=== PATIENT | female | born 1955 | race Caucasian/White ===

== ENCOUNTER 2022-09-19 15:11 | Observation (INO) | payer OTHER ==
--- OUTSIDE RECORDS SUMMARY | 2022-09-19 15:13 | XMS REPORT | Continuity of Care Document ---
:1955 Author Organization [facility] t Address [address] Santos [address] [place] [id number] Care Team Providers Name Role Phone Pcp, Patient Does Not Have A Primary Care Physician [id number] Doctor Unassigned, [place] Attending Clinician Unavailable RADHA IBRAHIM Attending Clinician Unavailable Radha Ibrahim MD Attending Clinician Dominique Payne RN Attending Clinician Unavailable Bradley LICENSED ELECTRICIANElin Attending Clinician Darrel Jacobs Attending Clinician DARREL ROLAND Attending Clinician Unavailable WATERS_S Attending Clinician Unavailable Meka Bradley RN Attending Clinician Unavailable Chaitanya Dugan MD Attending Clinician Provider, [facility] Attending Clinician Unavailable Toya Gonzalez Attending Clinician TOYA GUNTER Attending Clinician Unavailable WATERS_S Admitting Clinician Unavailable Payers Payer Name Policy Type Policy Number Effective Date Expiration Date S catherine MEDICARE A-[place]: [id number] 2020 [place] 00:00:00 [facility] () [id number] 2007 00:00:00 Problems Condition Condition Condition Status Onset Resolution Last Treating Co mments Source Name Details Category Date Date Treatment Clinician Date No known No known Disease Unive rs active active ity of problems problems [facility] [place] Allergies, Adverse Reactions, Alerts Allergy Allergy Status Severity Reaction(s) Onset Inactive Treating Comm ents Source Name Type Date Date Clinician NO KNOWN Drug Active Univers ALLERGIE Class ity of S [facility] [place] Social History Social Habit Start Date Stop Date Quantity Comments Source History SDOH University o f Alcohol Std [facility] Dr[facility] Branch History SDOH University o f Alcohol Binge [facility] History SDOH University o f Alcohol Comment [facility] Exposure to 2022-05-16 2022-05-26 Not sure University of SARS-CoV-2 00:00:00 08:57:00 [facility] (event) Branch Tobacco use and 2022-05-26 2022-05-26 Smokeless tobacco Un iversity of exposure 00:00:00 00:00:00 non-user [facility] Alcohol intake 2022-05-26 2022-05-26 Lifetime University of 00:00:00 00:00:00 non-drinker [facility] (finding) Branch History SDOH 2020-11-02 2020-11-02 1 University o f Alcohol Frequency 00:00:00 00:00:00 [facility] edical [place] Sex Assigned At [birth year] Universit y of 00:00:00 00:00:00 [facility] Smoking Status Start Date Stop Date Source Never smoked tobacco [facility] Medications Ordered Filled Start Stop Current Ordering Indication Dosage Frequency Signature Comments Components Source Medication Medication Date Date Medication? Clinician (SIG) Name Name atorradhatagenesis Yes 20mg Take 20 mg Univers n 20 mg 9-29 by mouth ity of tablet 09:54: at [place] [address] bedtime. Medical Branch atorvastati Yes 20mg Take 20 mg Univers n 20 mg 9-29 by mouth ity of tablet 09:54: at [place] [address] bedtime. Medical Branch atorvastati Yes 20mg Take 20 mg Univers n 20 mg 9-29 by mouth ity of tablet 09:54: at [place] [address] bedtime. Medical Branch atorvastati Yes 20mg Take 20 mg Univers n 20 mg 9-29 by mouth ity of tablet 09:54: at [place] [address] bedtime. Medical Branch atorvastati 2021-0 Yes 20mg Take 20 mg Univers n 20 mg 9-29 by mouth ity of tablet 09:54: at [place] 24 bedtime. Medical Branch atorvastati 1-0 Yes 20mg Take 20 mg Univers n 20 mg 9-29 by mouth ity of tablet 09:54: at [place] 24 bedtime. Medical Branch Vital Signs Vital Name Observation Time Observation Value Comments Source Body height 2022-05-26 20:16:00 152.4 cm [facility] Body weight 2022-05-26 20:16:00 54.432 kg [facility] BMI 2022-05-26 20:16:00 23.44 kg/m2 [facility] Systolic blood 2021 20:27:00 137 mm[facility]Hg[facility] 2021 20:27:00 71 mm[Hg[facility] Heart rate 2021 20:27:00 74 /min [facility] Body height 2021 20:27:00 152.4 cm [facility] Body weight 2021 20:27:00 58.877 kg [facility] BMI 2021 20:27:00 25.35 kg/m2 [facility] Oxygen saturation 2021 20:27:00 100 /min [facility] in Arterial blood Medical Br anch by Pulse oximetry Procedures Procedure Date / Time Performed Performing Clinician Sour e EXTERNAL PROVIDER 2022-06-12 05:01:00 Doctor Unassigned, No Univ [facility] RECORDS Name [facility] Encounters Start End Encounter Admission Attending Care Care Encounter Source Date/Time Date/Time Type Type Clinicians Facility Department ID 2022-06-12 2022-06-12 Orders Doctor SILVANA [id number] Univers 00:00:00 00:00:00 Only UnassignedKURTIS [id number] ity of [place] [facility] 4.2.7.2.686 Ruben as [id number] [place] [address] Branch 2022-05-26 2022-05-26 Outpatient R ALEXANDRIA [facility] [id number] Univers 15:15:00 16:01:10 RADHA penning[place] of [facility] 2022-05-26 2022-05-26 Office [facility] [id number] [facility] 15:15:00 16:01:10 Visit Radha ZENG [id number] it y of [place] [id number] Ruben as BRANDT?BLEA [id number] Me arthur PELAEZ [address] [place] [address] OFFICE [facility] 2022-05-26 2022-05-26 Telephone [facility] [id number] Univers 00:00:00 00:00:00 Radha ZENG [id number] it y of [place] [id number] Ruben as BRANDT?BLEA [id number] Ri arthur PELAEZ [address] [place] [address] OFFICE [facility] 2021 2021 Office [facility] [id number] [facility] 14:15:00 14:55:53 Visit Radha ZENG [id number] it y of [place] 4.2.7.2.686 Ruben as BRANDT?BLEA [id number] Ri arthur PELAEZ [address] [place] [address] 2021 2021 [facility] [id number] [facility] 14:15:00 14:55:53 RADHA pennington [facility] 2021-08-29 2021-08-29 Telephone [facility] [id number] Univers 00:00:00 00:00:00 Radha ZENG 350.1.13.10 it y of [place] 4.2.7.2.686 Ruben as BRANDT?BLEA [id number] Ri arthur PELAEZ [address] [place] [address] OFFICE [facility] 2021-08-19 2021-08-19 Telephone [facility] 1.2.840.114 [id number] Univers 00:00:00 00:00:00 Radha ZENG 350.1.13.10 it y of [place] 4.2.7.2.686 Ruben as BRANDT?BLEA [id number] Ri arthur PELAEZ [address] [place] [address] OFFICE [facility] 2021-08-19 2021-08-19 Telephone [facility] [id number] Univers 00:00:00 00:00:00 Radha L HEALTH 350.1.13.10 it y of [place] 4.2.7.2.686 Ruben as BRANDT?BLEA [id number] Ri arthur PELAEZ [address] [place] [address] OFFICE [facility] 2021-07-19 2021-07-19 Telephone [facility] 1.2.840.114 [id number] Univers 00:00:00 00:00:00 Radha L HEALTH 350.1.13.10 it y of [place] 4.2.7.2.686 Ruben as BRANDT?BLEA [id number] Ri arthur PELAEZ [address] [place] [address] 2021-07-18 2021-07-18 Orders Doctor PINA [id number] Univers 00:00:00 00:00:00 Only Unassigned, KURTIS 350.1.13.10 ity of [place] [facility] 4.2.7.2.686 Ruben as [phone] [facility] 009 [place] 2021-07-11 2021-07-11 Telephone [facility] [id number] Univers 00:00:00 00:00:00 Radha L HEALTH 350.1.13.10 it y of [place] 4.2.7.2.686 Ruben as BRANDT?BLEA [id number] Ri arthur PELAEZ [address] [place] [address] 2021-05-09 2021-05-09 Letter SILVANA Payne [id number] Univers 00:00:00 00:00:00 (Out) Dominique Octavio KURTIS 350.1.13.10 it y of HOSPITAL 4.2.7.2.686 Ruben as [id number] [facility] 019 [place] 2021-05-08 2021-05-08 Urgent Elin Huerta [facility] 1.2.840 .114 [id number] Univers 09:45:00 10:04:46 Care Darrel [facility] 350.1.13.10 ity of [place] 4.2.7.2.686 Ruben as Brandt?Blea [phone] Me dical michelle [address] [place] [address] Medical Office Building 2021-05-08 2021-05-08 Outpatient R DARLENEShania [facility] [id number] Univers 10:00:00 10:00:00 DARREL pennington [facility] 2021-05-08 2021-05-08 Outpatient WATERS_S [facility] 2020 Ramona 09:51:00 09:51:00 [id number] [facility] 2020-11-02 2020-11-02 Hospital [facility] 1.2.840.114 [id number] Univers 08:30:59 23:59:00 Encounter Radha Paredes [facility] 350.1.13.10 ity of Surgical 4.2.7.2.686 Ruben as Specialti [id number] Ri dical es 809 [facility] 2020-11-02 2020-11-02 [facility] [id number] Univers 09:45:00 09:45:00 RADHA pennington [facility] 2020-11-02 2020-11-02 Office [facility] [id number] Univers 08:19:20 08:52:19 Visit Radha Paredes [facility] 350.1.13.10 it y of Surgical 4.2.7.2.686 Ruben as Specialti [phone] Ri dical es 198 [facility] 2020-11-02 2020-11-02 Telephone [facility] 1.2.840.114 [id number] Univers 00:00:00 00:00:00 Radha Paredes [facility] 350.1.13.10 it y of Surgical 4.2.7.2.686 Ruben as Specialti [id number] Ri dical es 198 [facility] 2020-06-03 2020-06-03 Letter SILVANA Bradley 1.2.840.114 [id number] Univers 00:00:00 00:00:00 (Out) Meka KURTIS 350.1.13.10 it y of HOSPITAL 4.2.7.2.686 Ruben as [id number] [address] 2020-06-03 2020-06-03 Telephone SILVANA Dugan [id number] Univers 00:00:00 00:00:00 Chaitanya HULL 350.1.13.10 i ty of [facility] 4.2.7.2.686 Ruben as [id number] [address] 2020-05-31 2020-05-31 Urgent Provider, [facility] [id number] Univers 11:20:49 11:40:49 Care Toya Gunter [facility].1.13.[address] [facility] [id number] Ruben as Professio [id number] [place] [address] Branch Office Building One 2020-05-31 2020-05-31 Outpatient R JANI [facility] [id number] Univers 11:20:00 11:20:00 TOYA pennington [facility] Results This patient has no known results.
--- NOTE | 2022-09-19 15:51 | RAD REPORT ---
EXAM DESCRIPTION: RAD - Chest Single View - 09/19/2022 3:40 pm CLINICAL HISTORY: CHEST PAIN COMPARISON: No comparisons FINDINGS: Lines: None. Lungs: No evidence of edema or pneumonia. Pleural: No significant pleural effusions or pneumothorax. Cardiac: The heart size is within normal limits. Mediastinum: Within normal limits. Bones: No acute fractures. Other: None IMPRESSION: No acute cardiopulmonary disease.
[2022-09-19 16:09] LABS: Protime INR 0.93
[2022-09-19 16:10] LABS: Absolute Lymphocytes (CBC) 1.4 K/uL (0.7-4.9); Hematocrit 37.9 % (36.0-45.0); Lymphocytes % 30.5 % (15.3-44.8); MCV 91.5 fL (80-100); MPV 9.1 fL (7.6-11.3); RBC Red Blood Cell Count 4.14 M/uL (3.86-4.86)
[2022-09-19 16:25] LABS: Albumin 4.2 g/dL (3.4-5.0); Bilirubin Direct 0.1 mg/dL (0-0.2); Bilirubin Total 0.5 mg/dL (0.2-1.0); Magnesium 2.2 mg/dL (1.6-2.4); Potassium 3.9 mmol/L (3.5-5.1); Protein, Total 7.7 g/dL (6.4-8.2); Troponin High Sensitivity 4.5 pg/mL (<58.9)
--- NOTE | 2022-09-19 17:26 | RAD REPORT ---
EXAM DESCRIPTION: CTAngio Aorta For Dissection - 09/19/2022 5:13 pm CLINICAL HISTORY: chest pain COMPARISON: No comparisons TECHNIQUE: CTA of the chest, abdomen, and pelvis was performed. MIPs of the aorta were created. All CT scans are performed using dose optimization technique as appropriate and may include automated exposure control or mA/KV adjustment according to patient size. FINDINGS: Thorax: Chest Wall: No abnormal mass Lungs: No acute abnormality. Pleura: No effusions or pneumothorax. Angelia/Mediastinum: No lymphadenopathy. Aorta/Pulmonary Arteries: Unremarkable Heart: Normal size. Abdomen/Pelvis: Liver: No acute abnormality or suspicious lesions. Biliary: No biliary ductal dilatation. Stomach: No significant focal abnormality. Duodenum: No significant focal abnormality. Pancreas: 2 cystic lesions are present in the pancreatic head, the larger measuring 6 millimeters. No pancreatic ductal dilatation. Spleen: No significant abnormality. Adrenal: No suspicious lesions. Kidney/ureter: No hydronephrosis. No renal calculi. Too small to characterize and/or benign appearing renal lesions are noted. Retroperitoneum: No retroperitoneal adenopathy. Vascular: No aneurysm. Bowel: No significant focal abnormality. Peritoneum: No ascites or free air. Bladder: Grossly unremarkable. Reproductive: No adnexal masses. Suspect uterine fibroids. Bones: No acute fracture. Other: n/a IMPRESSION: 1. No aortic aneurysm, aortic dissection, or pulmonary embolus. 2. 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 While lesions of low malignant potential, they are typically observed with serial imaging including a 12 month follow-up MRCP .
--- NOTE | 2022-09-19 18:44 | ER ---
Nurse's Notes [facility] Name: Rafael Bacon Age: 67 yrs Sex: Female : 1955 Arrival Date: 09/19/2022 Time: 15:12 Bed 15 Private MD: Diagnosis: Chest pain, unspecified Presentation: 09/19 15:26 Chief complaint: Patient states: pain to chest/epigastric area radiating to back that aa5 started when she was out walking today and it lasted approximately 15 minutes and pain resolved "when I sat down". Pt also reports nausea. Coronavirus screen: At this time, the client does not indicate any symptoms associated with coronavirus-19. Ebola Screen: Patient denies travel to an Ebola-affected area in the 21 days before illness onset. Initial Sepsis Screen: Does the patient meet any 2 criteria? No. Patient's initial sepsis screen is negative. Does the patient have a suspected source of infection? No. Patient's initial sepsis screen is negative. Risk Assessment: Do you want to hurt yourself or someone else? Patient reports no desire to harm self or others. Onset of symptoms was September 2022. 15:26 Method Of Arrival: Ambulatory aa5 15:26 Acuity: DEANA 2 aa5 Triage Assessment: 15:56 General: Appears in no apparent distress. comfortable, Behavior is calm, cooperative, kr3 appropriate for age. Pain: Complains of pain in chest Pain radiates to back. Historical: - Allergies: 15:27 No Known Allergies; aa5 - PMHx: 15:27 High Cholesterol; Hypertension; aa5 - PSHx: 15:27 endometriosis; aa5 - Immunization history:: Adult Immunizations unknown. - Social history:: Smoking status: Patient denies any tobacco usage or history of. Screenin:[facility] ED Fall Risk Assessment (Adult) History of falling in the last 3 months, kr3 including since admission No falls in past 3 months (0 pts) Confusion or Disorientation No (0 pts) Intoxicated or Sedated No (0 pts) Impaired Gait No (0 pts) Mobility Assist Device Used No (0 pt) Altered Elimination No (0 pt) Score/Fall Risk Level 0 - 2 = Low Risk Oriented to surroundings, Maintained a safe environment, Assessed \\T\\ reinforced patient's understanding of fall precautions, Hourly rounding (assess needs \\T\\ fall precautionary measures) done. Abuse screen: Denies threats or abuse. Nutritional screening: No deficits noted. Tuberculosis screening: No symptoms or risk factors identified. Assessment: 20:33 Pain: Denies pain. Cardiovascular: Denies chest pain. ke1 Vital Signs: 15:26 BP 146 / 79; Pulse 86; Resp 16 S; Temp 97.5(TE); Pulse Ox 100% on R/A; Weight 52.62 kg aa5 (R); Height 5 ft. 0 in. (152.40 cm) (R); 20:33 BP 148 / 64; Pulse 75; Resp 19; Temp 97.6; Pulse Ox 100% on R/A; Pain 0/10; ke1 15:26 Body Mass Index 22.65 (52.62 kg, 152.40 cm) aa5 ED Course: 15:12 Patient arrived in ED. mr 15:13 Michael Lind PA is PHCP. cp 15:13 Wilmar Sierra MD is Attending Physician. cp 15:27 Triage completed. aa5 15:27 Arm band placed on. aa5 15:29 EKG completed in triage. Results shown to MD. aa5 15:31 Katarzyna Armstrong, DEMAR is Primary Nurse. kr3 15:32 EKG done, by ED staff, reviewed by Wilmar Sierra MD. mm9 15:33 Patient has correct armband on for positive identification. Placed in gown. Bed in low mm9 position. Call light in reach. Side rails up X 1. Adult w/ patient. Warm blanket given. Client placed on continuous cardiac and pulse oximetry monitoring. NIBP monitoring applied. nurse monitoring on. Pulse ox on. NIBP on. 15:42 XRAY Chest (1 view) In Process Unspecified. EDMS 15:55 Inserted saline lock: 22 gauge in right antecubital area, using aseptic technique. kr3 Blood collected. 17:14 CT Aorta for Dissection In Process Unspecified. EDMS 18:43 Nikki Reid PA-C is Hospitalizing Provider. cp 19:15 SARS RAPID Sent. rv1 20:34 No provider procedures requiring assistance completed. Patient maintains SpO2 ke1 saturation greater than 95% on room air. 20:40 Patient admitted, IV remains in place. ke1 Administered Medications: 19:00 Drug: Aspirin Chewable Tablet 324 mg Route: PO; kr3 20:40 Follow up: Response: No adverse reaction ke1 Medication: 20:34 VIS not applicable for this client. ke1 Outcome: 18:43 Decision to Hospitalize by Provider. cp 20:39 Admitted to Med/surg accompanied by tech. ke1 20:39 Condition: good 20:39 Instructed on the need for admit. 21:16 Patient left the ED. ke1 Signatures: Dispatcher [employer] OSMAR MasterLeni mr MorenoPerlita, RN RN aa5 Michael Lind PA PA David Gil RN RN ke1 Katarzyna Armstrong RN RN regina3 Dasia Jimenez [facility] Laly Fairbanks 1 Corrections: (The following items were deleted from the chart) 15:29 15:26 Acuity: DEANA 3 aa5 aa5
--- NOTE | 2022-09-19 18:44 | EDPHYS ---
Physician Documentation [facility] Name: Rafael Bacon Age: 67 yrs Sex: Female : 1955 Arrival Date: 09/19/2022 Time: 15:12 Bed 15 Private MD: ED Physician Wilmar Sierra HPI: 09/19 15:25 This 67 yrs old Female presents to ER via Ambulatory with complaints of Chest Pain, cp Back Pain. 15:25 The patient or guardian reports chest pain that is located primarily in the anterior cp chest wall, pain started while walking to exercise. Onset: today, about 1330. The pain radiates to back. 15:25 The chest pain is described as aching. Duration: The patient or guardian reports a cp single episode, that is still ongoing, but improving. Modifying factors: The symptoms are alleviated by rest. Historical: - Allergies: 15:27 No Known Allergies; aa5 - PMHx: 15:27 High Cholesterol; Hypertension; aa5 - PSHx: 15:27 endometriosis; aa5 - Immunization history:: Adult Immunizations unknown. - Social history:: Smoking status: Patient denies any tobacco usage or history of. ROS: 15:30 Constitutional: Negative for body aches, chills, fever, poor PO intake. cp 15:30 Cardiovascular: Positive for chest pain. cp 15:30 Eyes: Negative for injury, pain, redness, and discharge. cp 15:30 Neck: Negative for pain with movement, pain at rest, stiffness. 15:30 Respiratory: Negative for cough, shortness of breath, wheezing. 15:30 Abdomen/GI: Negative for abdominal pain, vomiting, diarrhea, constipation. 15:30 Back: Positive for radiated pain. 15:30 Neuro: Negative for altered mental status, dizziness, headache, numbness, syncope, weakness. 15:30 All other systems are negative. Exam: 15:35 ECG was reviewed by the Attending Physician. cp 15:40 Constitutional: The patient appears in no acute distress, alert, awake, cp non-diaphoretic, non-toxic, well developed, well nourished. 15:40 Head/Face: Normocephalic, atraumatic. cp 15:40 Eyes: Periorbital structures: appear normal, Conjunctiva: normal, no exudate, no injection, Sclera: no appreciated abnormality, Lids and lashes: appear normal, bilaterally. 15:40 ENT: External ear(s): are unremarkable, Nose: is normal, Mouth: Lips: moist, Oral mucosa: pink and intact, moist, Posterior pharynx: is normal, airway is patent, no erythema, no exudate. 15:40 Neck: ROM/movement: is normal, is supple, without pain, no range of motions limitations. 15:40 Chest/axilla: Inspection: normal. 15:40 Cardiovascular: Rate: normal, Rhythm: regular, Heart sounds: murmur, not appreciated, Edema: is not appreciated, JVD: is not appreciated. 15:40 Respiratory: the patient does not display signs of respiratory distress, Respirations: normal, no use of accessory muscles, no retractions, labored breathing, is not present, Breath sounds: are clear throughout, no decreased breath sounds, no stridor, no wheezing. 15:40 Abdomen/GI: Exam negative for discomfort, distension, guarding, Inspection: abdomen appears normal. 15:40 Back: pain, that is mild, ROM is normal, CVA tenderness, is absent, vertebral tenderness, is not appreciated. 15:40 Neuro: Orientation: to person, place \T\ time. Mentation: is normal, Motor: moves all fours, strength is normal, Sensation: is normal. Vital Signs: 15:26 BP 146 / 79; Pulse 86; Resp 16 S; Temp 97.5(TE); Pulse Ox 100% on R/A; Weight 52.62 kg aa5 (R); Height 5 ft. 0 in. (152.40 cm) (R); 20:33 BP 148 / 64; Pulse 75; Resp 19; Temp 97.6; Pulse Ox 100% on R/A; Pain 0/10; ke1 15:26 Body Mass Index 22.65 (52.62 kg, 152.40 cm) aa5 MDM: 15:23 Patient medically screened. cp 15:30 Differential diagnosis: cholecystitis, Cholelithiasis pancreatitis, pneumonia, cp pneumothorax, pulmonary embolus, stable angina, thoracic aortic disection, unstable angina. 18:45 The patient was given aspirin in the Emergency Department. cp 18:45 Data reviewed: vital signs, nurses notes, lab test result(s), EKG, radiologic studies, cp CT scan, plain films, and as a result, I will admit patient. Consideration of Admission/Observation Patient was admitted/placed on observation. Management of patient was discussed with the following: Hospitalist: Germania Reid NP. Care significantly affected by the following chronic conditions: Hypertension, hyperlipidemia. Counseling: I had a detailed discussion with the patient and/or guardian regarding: the historical points, exam findings, and any diagnostic results supporting the discharge/admit diagnosis, lab results, radiology results. 09/19 15:24 Order name: Basic Metabolic Panel; Complete Time: 16:27 cp 09/19 15:24 Order name: CBC with Diff; Complete Time: 16:27 cp 09/19 15:24 Order name: LFT's; Complete Time: 16:27 cp 09/19 15:24 Order name: Magnesium; Complete Time: 16:27 cp 09/19 15:24 Order name: NT PRO-BNP; Complete Time: 16:27 cp 09/19 15:24 Order name: PT-INR; Complete Time: 16:27 cp 09/19 15:24 Order name: Troponin HS; Complete Time: 16:27 cp 09/19 16:27 Interpretation: Troponin HS 4.5; Reviewed. cp 09/19 15:24 Order name: XRAY Chest (1 view); Complete Time: 15:52 cp 09/19 15:24 Order name: EKG; Complete Time: 15:25 cp 09/19 15:24 Order name: CT Aorta for Dissection; Complete Time: 17:37 cp 09/19 17:40 Order name: Lipase; Complete Time: 18:26 cp 09/19 17:40 Order name: LAB Add On cp 09/19 19:06 Order name: SARS RAPID iw 09/19 15:24 Order name: Cardiac monitoring; Complete Time: 15:32 cp 09/19 15:24 Order name: EKG - Nurse/Tech; Complete Time: 15:29 cp 09/19 15:24 Order name: IV Saline Lock; Complete Time: 15:55 cp 09/19 15:24 Order name: Labs collected and sent; Complete Time: 15:55 cp 09/19 15:24 Order name: O2 Per Protocol; Complete Time: 15:55 cp 09/19 15:24 Order name: O2 Sat Monitoring; Complete Time: 15:55 cp 09/19 19:55 Order name: Diet Regular; Complete Time: 19:56 cp EC:35 Rate is 70 beats/min. Rhythm is regular. MI interval is normal. QRS interval is normal. cp QT interval is normal. T waves are Inverted in lead aVR. Interpreted by me. Reviewed by me. Administered Medications: 19:00 Drug: Aspirin Chewable Tablet 324 mg Route: PO; kr3 20:40 Follow up: Response: No adverse reaction ke1 Disposition Summary: 09/19/22 18:43 Hospitalization Ordered Hospitalization Status: Observation cp Provider: Nikki Reid cp Location: Telemetry/MedSurg (observation) cp Condition: Stable cp Problem: new cp Symptoms: have improved cp Bed/Room Type: Standard Room Assignment: 208(09/19/22 19:59) dw Diagnosis - Chest pain, unspecified cp Forms: - Medication Reconciliation Form cp - SBAR form cp Signatures: Dispatcher [employer] Lianet Cartagena RN RN dw Calderon, Audri RN RN aa5 Michael Lind PA PA cp Katarzyna Armstrong RN RN kr3 David Bray RN ke1 Corrections: (The following items were deleted from the chart) 19:59 18:43 cp dw 09/20 05:39 09/19 15:25 The patient or guardian reports chest pain that is located primarily in the cp anterior chest wall, cp
[2022-09-19] MEDS ORDERED: ASPIRIN 81 MG CHEWABLE TABLET ONE (18:49)
--- NOTE | 2022-09-19 19:22 | P.HP ---
Certification for Inpatient Patient admitted to: Observation With expected LOS: <2 Midnights Patient will require the following post-hospital care: None Practitioner: I am a practitioner with admitting privileges, knowledge of patient current condition, hospital course, and medical plan of care. Services: Services provided to patient in accordance with Admission requirements found in Title 42 Section 412.3 of the Code of Federal Regulations Patient History Date of Service: 09/19/22 Reason for admission: Chest Pain History of Present Illness: Patient is a 67-year-old female with past medical history of hypertension and hyperlipidemia who presented to the emergency department with complaints of chest pain. Patient reports that she was on a walk today, like she does every day, and she started experiencing some substernal chest pain. She states that it radiated to her back and persisted until she got home and sat down and rested. She denies any prior episodes. She is compliant with her medications. States that she actually saw her veneer supervisor Dr. Carr yesterday, and he said everything looked good. She had a negative stress test about 6 months ago. Her labs are unremarkable today, including troponin. CT chest negative for dissection. EKG had some nonspecific changes. She was given 324 mg of aspirin in the ED and has been mildly hypertensive. She has no complaints at this time. ED provider wishes to admit patient for observation, ACS rule out. Home medications list reviewed: Yes - Past Medical/Surgical History Diabetic: No -: Hypertension -: Hyperlipidemia -: Endometriosis Psychosocial/ Personal History: Patient is . - Family History Mother -: Heart disease, Stroke - Social History Smoking Status: Never smoker Alcohol use: No CD- Drugs: No Caffeine use: No Place of Residence: Home Review of Systems Respiratory: Shortness of Breath Cardiovascular: Chest Pain Gastrointestinal: Nausea Physical Examination - Vital Signs Temperature: 97.5 F Blood Pressure: 146/79 Pulse: 86 Respirations: 16 Pulse Ox (%): 100 - Physical Exam General: Alert, In no apparent distress HEENT: Atraumatic, EOMI, Sclerae nonicteric Neck: Supple, 2+ carotid pulse no bruit Respiratory: Clear to auscultation bilaterally, Normal air movement Cardiovascular: Regular rate/rhythm, Normal S1 S2 Gastrointestinal: Normal bowel sounds, No tenderness Musculoskeletal: No tenderness Integumentary: No rashes Neurological: Normal speech, Normal affect - Studies Laboratory Data (last 24 hrs) 09/19/22 15:52: Lipase 172 09/19/22 15:52: PT 10.2, INR 0.93 09/19/22 15:52: WBC 4.40, Hgb 12.5, Hct 37.9, Plt Count 210 09/19/22 15:52: Sodium 138, Potassium 3.9, BUN 15, Creatinine 0.71, Glucose 100, Magnesium 2.2, Total Bilirubin 0.5, AST 18, ALT 26, Alkaline Phosphatase 62 Assessment and Plan - Problems (Diagnosis) (1) Chest pain Current Visit: Yes Status: Acute Qualifiers: Chest pain type: unspecified Qualified Code(s): R07.9 - Chest pain, unspecified (2) Hypertension Current Visit: Yes Status: Chronic Qualifiers: Hypertension type: primary hypertension Qualified Code(s): I10 - Essential (primary) hypertension (3) Hyperlipidemia Current Visit: Yes Status: Chronic Qualifiers: Hyperlipidemia type: unspecified Qualified Code(s): E78.5 - Hyperlipidemia, unspecified - Plan Patient is admitted for observation, ACS rule out. Cardiology consult. Monitor on telemetry. Initial troponin negative. Continue to trend. Echo, lipid panel, and TSH ordered. Aspirin and atorvastatin daily. Monitor and replete electrolytes per protocol. Reconcile and continue home medications. Lovenox for VTE ppx. Full code. Discharge Plan: Home Plan to discharge in: 24 Hours - Advance Directives Does patient have a Living Will: No Does patient have a Durable POA for Healthcare: No - Code Status/Comfort Care Code Status Assessed: Yes Code Status: Full Code Physician Review: Patient Assessed, Agree with Above Assessment and Plan Critical Care: No Time Spent Managing Pts Care (In Minutes): 50
[2022-09-19 19:31] LABS: SARS-CoV-2 Antigen Rapid Res Negative (Negative)
[2022-09-19] MEDS ORDERED: ONDANSETRON 4 MG/2 ML VIAL IV PRN (21:47)
[2022-09-19] MEDS ORDERED: ACETAMINOPHEN 500 MG TAB PO PRN (21:47)
[2022-09-19] MEDS ORDERED: ATORVASTATIN 40 MG TAB PO SCH (21:47)
[2022-09-19 22:16] VITALS: O2SAT 100
[2022-09-20 00:30] VITALS: BMI 22.6
[2022-09-20 05:08] LABS: Thyroid Stimulating Hormone 2.31 uIU/mL (0.358-3.740); Troponin High Sensitivity 5.4 pg/mL (<58.9)
[2022-09-20] MEDS ORDERED: ENOXAPARIN 40 MG/0.4 ML SQ SCH (09:00)
[2022-09-20] MEDS: ASPIRIN EC 81 MG TAB PO SCH ×2 (09:00→10:14)
[2022-09-20] MEDS ORDERED: PNEUMOCOCCAL VACCINE 0.5 ML IMVAC ONE (10:00)
[2022-09-20 11:45] VITALS: BP 146/71; TEMP 98.3
--- NOTE | 2022-09-20 11:46 | P.DS ---
Admission Date: 09/19/22 Discharge Date: 09/20/22 Reason for Admission: Chest Pain - Problems (1) Chest pain Current Visit: Yes Status: Acute Qualifiers: Chest pain type: unspecified Qualified Code(s): R07.9 - Chest pain, unspecified (2) Hyperlipidemia Current Visit: Yes Status: Chronic Qualifiers: Hyperlipidemia type: unspecified Qualified Code(s): E78.5 - Hyperlipidemia, unspecified (3) Hypertension Current Visit: Yes Status: Chronic Qualifiers: Hypertension type: primary hypertension Qualified Code(s): I10 - Essential (primary) hypertension Brief History of Present Illness: Patient is a 67-year-old female with past medical history of hypertension and hyperlipidemia who presented to the emergency department with complaints of chest pain. Patient reports that she was on a walk today, like she does every day, and she started experiencing some substernal chest pain. She states that it radiated to her back and persisted until she got home and sat down and rested. She denied any prior episodes. She is compliant with her medications. States that she actually saw her magnet valve assembler Dr. Carr yesterday, and he said everything looked good. She had a negative stress test about 6 months ago. Her labs are unremarkable today, including troponin. CT chest negative for dissect ion. EKG had some nonspecific changes. She was given 324 mg of aspirin in the ED. She was chest pain free. ED provider wishes to admit patient for observation, ACS rule out. Hospital Course: Patient placed under observation on the medical floor. Troponin trended negative. Patient was chest pain-free during the hospital stay. Vitals were stable. Patient had a recent stress test done about 6 months ago which was normal. Case discussed with cardiology-Dr. Cannon who recommended follow-up as outpatient. Patient informed to follow-up with her magnet valve assembler Dr. Carr for further evaluation. She is prescribed aspirin. Her lipid profile was within normal limit. Vital Signs/Physical Exam: Temp Pulse Resp BP Pulse Ox 98.2 F 74 12 134/65 100 09/20/22 08:00 09/20/22 08:00 09/20/22 08:00 09/20/22 08:00 09/20/22 08:00 General: Alert, In no apparent distress, Oriented x3 HEENT: Mucous membr. moist/pink Neck: Supple, JVD not distended Respiratory: Clear to auscultation bilaterally, Normal air movement Cardiovascular: No edema, Regular rate/rhythm, Normal S1 S2 Gastrointestinal: Normal bowel sounds, Soft and benign, Non-distended, No tenderness Musculoskeletal: No swelling Integumentary: No rashes Neurological: Normal strength at 5/5 x4 extr Laboratory Data at Discharge: WBC 4.40 K/uL (4.3-10.9) 09/19/22 15:52 Hgb 12.5 g/dL (12.0-15.0) 09/19/22 15:52 Hct 37.9 % (36.0-45.0) 09/19/22 15:52 Plt Count 210 K/uL (152-406) 09/19/22 15:52 PT 10.2 SECONDS (9.5-12.5) 09/19/22 15:52 INR 0.93 09/19/22 15:52 Sodium 138 mmol/L (136-145) 09/19/22 15:52 Potassium 3.9 mmol/L (3.5-5.1) 09/19/22 15:52 BUN 15 mg/dL (7-18) 09/19/22 15:52 Creatinine 0.71 mg/dL (0.55-1.02) 09/19/22 15:52 Glucose 100 mg/dL (74-106) 09/19/22 15:52 Magnesium 2.2 mg/dL (1.6-2.4) 09/19/22 15:52 Total Bilirubin 0.5 mg/dL (0.2-1.0) 09/19/22 15:52 AST 18 U/L (15-37) 09/19/22 15:52 ALT 26 U/L (13-56) 09/19/22 15:52 Alkaline Phosphatase 62 U/L (45-117) 09/19/22 15:52 Triglycerides 71 mg/dL (<150) 09/20/22 03:50 Cholesterol 175 mg/dL (<200) 09/20/22 03:50 HDL Cholesterol 74 mg/dL (40-60) H 09/20/22 03:50 Cholesterol/HDL Ratio 2.36 09/20/22 03:50 Lipase 172 U/L (73-393) 09/19/22 15:52 Home Medications: Aspirin [Aspirin EC] 81 mg PO DAILY #30 tab 09/20/22 Cholestyramine (with Sugar) [Questran Packet] 4 gm PO DAILY 09/20/22 Losartan Potassium [Cozaar] 25 mg PO DAILY 09/20/22 New Medications: Aspirin [Aspirin EC] 81 mg PO DAILY #30 tab Diet: AHA Activity: Ad cherie Followup: NONE,NONE [Primary Care Provider] -
== END 2022-09-20 12:47 | disposition home or self-care (01) ==
LOC: ER 15:11 → ERHOLD 19:16 → 2ND 20:16
PROVIDERS: ADMIT Internal Medicine; ATTEND Internal Medicine
DX: R07.9 Chest pain, unspecified (principal); I10 Essential (primary) hypertension; E78.5 Hyperlipidemia, unspecified; Z20.822 Contact with and (suspected) exposure to COVID-19
CPT/HCPCS: 85025; 80048; 36415; 83735; 85610; 80061; 80076; 84443; 84484 ×3; 83690; 83880; 71275; 74175; 71045; 99285; 87811; Q9967; 93005; G0378

== ENCOUNTER 2025-05-10 08:21 | Day surgery (SDC) | payer OTHER ==
[2025-05-10 08:56] LABS: Absolute Lymphocytes (CBC) 1.3 K/uL (0.7-4.9); Hematocrit 36.9 % (36.0-45.0); Hemoglobin 12.3 g/dL (12.0-15.0); MCH 30.2 pg (27.0-35.0); MCHC 33.4 g/dL (32.0-36.0); MCV 90.5 fL (80-100); MPV 9.5 fL (7.6-11.3); Nucleated RBC Absolute Count 0.0 (0-0); Nucleated Red Blood Cells % 0.0 % (0-0); RBC Red Blood Cell Count 4.08 M/uL (3.86-4.86); White Blood Count 3.40 thou/uL (4.3-10.9)
[2025-05-10 09:05] LABS: PT Prothrombin Time 10.1 SECONDS (10-13.0); PTT, Activated Partial Thromb 29.5 SECONDS (27.2-37.4); Protime INR 0.89
[2025-05-10 09:14] LABS: ALT/SGPT 22 U/L (13-56); AST/SGOT 16 U/L (15-37); Albumin 3.6 g/dL (3.4-5.0); Albumin/Globulin Ratio 1.1 (1.1-1.8); Alkaline Phosphatase 65 U/L (45-117); Anion Gap 7.7 mEq/L (5.0-15.0); BUN Blood Urea Nitrogen 16 mg/dL (7-18); Globulin 3.2 g/dL (2.3-3.5); Glucose Level 92 mg/dL (74-106); Potassium 3.7 mEq/L (3.5-5.1)
[2025-05-10 09:15] LABS: Bilirubin Indirect, Calculated 0.1 mg/dL (0.2-0.8)
[2025-05-10 10:35] VITALS: O2SAT 100
[2025-05-10 10:36] VITALS: BMI 24.2
[2025-05-10 12:36] LABS: Color of Supernate Not Xanthochromic (Not Xantho); Color of fluid Colorless (COLORLESS)
[2025-05-10 12:58] VITALS: BP 155/60; TEMP 97.8
[2025-05-10 14:27] LABS: Fluid Total Cells Count 6
--- NOTE | 2025-05-10 20:36 | RAD REPORT ---
Procedure: LUMBAR SPINE PUNCTURE FLURO/CT Preprocedure and procedure diagnosis: R41.89; D51.9; E55.9; I10; E78.5; M81.0 Anesthesia: 8 mL of buffered 1% lidocaine Specimen: 12 mL of CSF Exposure: 0.2 minutes TECHNIQUE: Prior to the procedure, the risks and benefits of a lumbar puncture were explained to the patient who consented fully to the procedure. Casket Coverer radiographs were performed. A radiopaque object was used to fernando the site of best entry into the lumbar canal on the skin. This a felipe was then prepped and draped in the usual sterile fashion. Lidocaine was used to anesthetize the skin. A 22-gauge spinal needle was then placed using fluoroscop ic guidance into the central canal of the lumbar spine. CSF was able to be obtained. A total of 12 mL was obtained. The patient tolerated the procedure well without immediate post procedure complication.
== END 2025-05-10 12:50 | disposition home or self-care (01) ==
LOC: DS 08:21
PROVIDERS: ATTEND Psychiatry & Neurology Neurology with Special Qualifications in Child Neurology
DX: R41.89 Other symptoms and signs involving cognitive functions and awareness (principal); D51.9 Vitamin B12 deficiency anemia, unspecified; E55.9 Vitamin D deficiency, unspecified; I10 Essential (primary) hypertension; E78.5 Hyperlipidemia, unspecified; M81.0 Age-related osteoporosis without current pathological fracture
CPT/HCPCS: 36415; 62328; 80048; 80076; 82542; 82945; 84157; 85025; 85610; 85730; 89050

== ENCOUNTER 2025-05-13 15:55 | Emergency (ER) | payer OTHER ==
--- OUTSIDE RECORDS SUMMARY | 2025-05-13 15:58 | XMS REPORT | Continuity of Care Document ---
Author Name Unknown Address [address] [place] [address] [facility] Address [address] [place] [address] Care Team Providers Care Associate Research Scientist Name Role Phone PCP, PATIENT DOES NOT HAVE A Primary Care Physic efren Unavailable МАРИНА AGUILA Attending Clinician Unavailable МАРИНА AGUILA Attending Clinician Unavailable Unknown, Attending Attending Clinician Unavailab le Doctor Unassigned, [place] Attending Clinician U RADHA Khanna Attending Clinician Unavailshawn Ibrahim MD, Radha Paredes Attending Clinician [phone] Elmer BENZ, Dominique Cunningham Attending Clinician Unavailab Elin Hyman Attending Clinician [phone] Darrel Jacobs Attending Clinician [phone] DARREL LAWSON Attending Clinician Unavailable WATERS_S Attending Clinician Unavailable Meka Bradley RN Attending Clinician Unavailshawn Dugan MD, Chaitanya Orr Attending Clinician [phone] Provider, [facility] Attending Clinician Un available Toya Gonzalez Attending Clinician [phone] TOYA GUNTER Attending Clinician Unavailable WATERS_S Admitting Clinician Unavailable Payers Payer Name Policy Type Policy Number Effective Date Expirati on Date Source MEDICARE PART A \T\ B [id number] 2020 00:00:00 [id number] 2021 00:00:00 [place]: [employer] [facility] - FQHC [id number] 2020 00:00:00 () [id number] 2007 00:00:00 Problems Condition Name Condition Details Condition Category Status Onset Date Resolution Date Last Treatment Date Treating Clinician Comments Source Recurrent urinary tract infection Recurrent Urinary Tract Infection Problem Active 2023-08 00:00: 00 [facility] Atrophic vaginitis Atrophic Vaginitis Problem Active 2022-08 00:00: 00 [facility] Hyperlipid emia Hyperlipid emia Problem Active 2022-08 00:00: 00 [facility] Essential hypertensi on Essential Hypertensi on Problem Active 2022-08 00:00: 00 [facility] No known active problems No known active problems Disease [facility] Allergies, Adverse Reactions, Alerts Allergy Name Allergy Type Status Severity Reaction(s) Onset Date Inactive Date Treating Clinician Comments Source NO KNOWN ALLERGIE S Drug Class Active [facility] Social History Social Habit Start Date Stop Date Quantity Comments Source History SDOH Alcohol Std Drinks [facility] History SDOH Alcohol Binge [facility] History SDOH Alcohol Comment [facility] Alcohol intake 2023-01-08 00:00:00 2023-01-08 00:00:00 Lifetime non-drinker (finding) [facility] Exposure to SARS-CoV-2 (event) 2022-12-25 00:00:00 2023-01-04 16:42:00 Not sure [facility] Tobacco use and exposure 2022-05-26 00:00:00 2022-05-26 00:00:00 Smokeless tobacco non-user [facility] History SDOH Alcohol Frequency 2020-11-02 00:00:00 2020-11-02 00:00:00 1 [facility] Sex Ass[birth year] At 1955 00:00:00 1955 00:00:00 [facility] Smoking Status Start Date Stop Date Source Never Smoker [facility] Medications Ordered Medication Name Filled Medication Name Start Date Stop Date Current Medication? Ordering Clinician Indication Dosage Frequency Signature (SIG) Comments Components Source atorvastati n 20 mg tablet 01-04 16:52: 37 Yes 20mg Take 1 tablet by mouth at bedtime. [facility] bromphenira mine-pseudo ephedrine-D M (BROMFED DM) 2-30-10 mg/5 mL syrup 01-04 00:00: 00 01-15 04:59 :00 No [id number] 10mL Take 10 mL by mouth 4 (four) times daily as needed for Congestion /Allergies or Cough for up to 10 days. [facility] amoxicillin -clavulanat e (AUGMENTIN) 875-125 mg per tablet 01-04 00:00: 00 01-10 04:59 :00 No [id number] 1{tbl} Take 1 tablet by mouth in the morning and 1 tablet in the evening. Do all this for 5 days. [facility] famotidine 20 mg tablet 10-10 00:00: 00 Yes 20mg Take 1 tablet by mouth at bedtime. [facility] omeprazole 20 mg capsule 10-10 00:00: 00 Yes TAKE 1 CAPSULE BY MOUTH IN THE MORNING [facility] rosuvastati n 10 mg tablet 2021-08 0 00:00: 00 Yes 10mg Take 1 tablet by mouth. [facility] atorvastati n 20 mg tablet 05-08 09:54: 24 Yes 20mg Take 20 mg by mouth at bedtime. [facility] calcium 1200mg DAILY calcium 1200mg DAILY No calcium 1200mg DAILY [facility] CoQ-10 CoQ-10 No CoQ-10 [facility] cranberry cranberry No cranberry [facility] Crestor 10 mg tablet Take 1 tablet every day by oral route. Crestor 10 mg tablet Take 1 tablet every day by oral route. No 1 Q1D Crestor 10 mg tablet Take 1 tablet every day by oral route. [facility] estradiol 0.01% (0.1 mg/gram) vaginal cream Insert 0.5 g every 72 hours by vaginal route at bedtime for 90 days. estradiol 0.01% (0.1 mg/gram) vaginal cream Insert 0.5 g every 72 hours by vaginal route at bedtime for 90 days. No .5g estradiol 0.01% (0.1 mg/gram) vaginal cream Insert 0.5 g every 72 hours by vaginal route at bedtime for 90 days. [facility] hydrochloro thiazide 12.5 mg tablet Take 1 tablet every day by oral route. hydrochloro thiazide 12.5 mg tablet Take 1 tablet every day by oral route. No 1 Q1D hydrochlor othiazide 12.5 mg tablet Take 1 tablet every day by oral route. [facility] Joint Support Complex Joint Support Complex No Joint Support Complex [facility] L-Methylfol ate Forte L-Methylfol ate Forte No L-Methylfo late Forte [facility] losartan 25 mg tablet TAKE 1 TABLET BY MOUTH EVERY DAY FOR 7 DAYS losartan 25 mg tablet TAKE 1 TABLET BY MOUTH EVERY DAY FOR 7 DAYS No losartan 25 mg tablet TAKE 1 TABLET BY MOUTH EVERY DAY FOR 7 DAYS [facility] magnesium magnesium No magnesium [facility] Multivitami n 50 Plus Multivitami n 50 Plus No Multivitam in 50 Plus [facility] Probiotic Probiotic No Probiotic [facility] Vitamin D Vitamin D No Vitamin D [facility] vitamin E vitamin E No vitamin E [facility] zinc zinc No zinc [facility] Vital Signs Vital Name Observation Time Observation Value Comments S ource BMI (Body Mass Index) 2024-06-22 00:00:00 24.6 kg/m2 [facility] BP Systolic 2024-06-22 00:00:00 140 mm[Hg] [facility] Body Weight 2024-06-22 00:00:00 126.2 [lb_av] [facility] BP Diastolic 2024-06-22 00:00:00 76 mm[Hg] [facility] Height 2024-06-22 00:00:00 60 [in_i] [facility] Systolic blood pressure 2023-01-04 21:53:00 131 mm[Hg] [facility] Diastolic blood pressure 2023-01-04 21:53:00 75 mm[Hg] [facility] Heart rate 2023-01-04 21:53:00 101 /min [facility] Body temperature 2023-01-04 21:53:00 36.83 Tasha [facility] Respiratory rate 2023-01-04 21:53:00 16 /min [facility] Body weight 2023-01-04 21:53:00 53.071 kg [facility] BMI 2023-01-04 21:53:00 22.85 kg/m2 [facility] Oxygen saturation in Arterial blood by Pulse oximetry 2023-01-04 21:53:00 99 /min [facility] Body height 2022-05-26 20:16:00 152.4 cm [facility] Body weight 2022-05-26 20:16:00 54.432 kg [facility] BMI 2022-05-26 20:16:00 23.44 kg/m2 [facility] Systolic blood pressure 2021 20:27:00 137 mm[Hg] [facility] Diastolic blood pressure 2021 20:27:00 71 mm[Hg] [facility] Heart rate 2021 20:27:00 74 /min [facility] Body height 2021 20:27:00 152.4 cm [facility] Body weight 2021 20:27:00 58.877 kg [facility] BMI 2021 20:27:00 25.35 kg/m2 [facility] Oxygen saturation in Arterial blood by Pulse oximetry 2021 20:27:00 100 /min [facility] Procedures Procedure Date / Time Performed Performing Clinicia n Source ASSIGNMENT OF BENEFITS 2023-01-04 21:41:38 Docto r Unassigned, [place] [facility] EXTERNAL PROVIDER RECORDS 2022-06-12 05:01:00 Doctor Unassigned, [place] [facility] Encounters Start Date/Time End Date/Time Encounter Type Admission Type Attending Clinicians Care Facility Care Department Encounter ID Source 2024-06-22 00:00:00 2024-06-22 00:00:00 Karla Jiménez, [facility]: [address], [address], [place] [address] , Ph. [facility] - [id number] [facility]* [id number] [facility] 2023-01-04 16:40:00 2023-01-04 17:29:43 Outpatient R МАРИНА AGUILA SHAHNAZ [facility] [id number] [facility] 2023-01-04 16:40:00 2023-01-04 17:29:43 Urgent Care Марина Aguila Unknown, Attending [facility] 1..114 350.1.13.10 4.2.7.2.686 [id number] [facility] 2023-01-04 00:00:00 2023-01-04 00:00:00 Orders Only Doctor Unassigned, [place] [facility] 1.2.114 350.1.13.10 4.2.7.2.686 [id number] [facility] 2022-06-12 00:00:00 2022-06-12 00:00:00 Orders Only Doctor Unassigned, [place] [facility] 1.2.114 350.1.13.10 4.2.7.2.686 [id number] [facility] 2022-05-26 15:15:00 2022-05-26 16:01:10 Outpatient R RADHA IBRAHIM [facility] [id number] [facility] 2022-05-26 15:15:00 2022-05-26 16:01:10 Office Visit Radha Ibrahim [facility] 1.114 350.1.13.10 4.2.7.2.686 [id number] [facility] 2022-05-26 00:00:00 2022-05-26 00:00:00 Telephone Radha Ibrahim [facility] 1..114 350.1.13.10 4.2.7.2.686 [id number] [facility] 2021 14:15:00 2021 14:55:53 Outpatient R RADHA IBRAHIM [facility] [id number] [facility] 2021 14:15:00 2021 14:55:53 Office Visit Radha Ibrahim [facility] 1.2840.114 350.1.13.10 4.2.7.2.686 [id number] [facility] 2021-08-29 00:00:00 2021-08-29 00:00:00 Telephone [facility] 1.840.114 350.1.13.10 4.2.7.2.686 [id number] [facility] 2021-08-19 00:00:00 2021-08-19 00:00:00 Telephone Radha Ibrahim [facility] 1.84.114 350.1.13.10 4.2.7.2.686 [id number] [facility] 2021-08-19 00:00:00 2021-08-19 00:00:00 Telephone Radha Ibrahim [facility] 1.284.114 350.1.13.10 4.2.7.2.686 [id number] [facility] 2021-07-19 00:00:00 2021-07-19 00:00:00 Telephone Radha Ibrahim [facility] 1.2840.114 350.1.13.10 4.2.7.2.686 [id number] [facility] 2021-07-18 00:00:00 2021-07-18 00:00:00 Orders Only Doctor Unassigned, [place] [facility] 1.2.840.114 350.1.13.10 4.2.7.2.686 [id number] [facility] 2021-07-11 00:00:00 2021-07-11 00:00:00 Telephone Radha Ibrahim [facility] 1.2.840.114 350.1.13.10 4.2.7.2.686 [id number] [facility] 2021-05-09 00:00:00 2021-05-09 00:00:00 Letter (Out) Dominique Payne [facility] 1.2.840.114 350.1.13.10 4.2.7.2.686 [id number] [facility] 2021-05-08 09:45:00 2021-05-08 10:04:46 Urgent Care Elin Huerta [facility] 1.2.840.114 350.1.13.10 4.2.7.2.686 [id number] [facility] 2021-05-08 10:00:00 2021-05-08 10:00:00 Outpatient DARREL PÉREZ [facility] [id number] [facility] 2020-11-02 08:30:59 2020-11-02 23:59:00 Hospital Encounter Radha Ibrahim [facility] 1.2.840.114 350.1.13.10 4.2.7.2.686 [id number] [facility] 2020-11-02 09:45:00 2020-11-02 09:45:00 Outpatient R RADHA IBRAHIM [facility] [id number] [facility] 2020-11-02 08:19:20 2020-11-02 08:52:19 Office Visit Radha Ibrahim [facility] 1.2.840.114 350.1.13.10 4.2.7.2.686 [id number] [facility] 2020-11-02 00:00:00 2020-11-02 00:00:00 Telephone Radha Ibrahim [facility] [place] 1.2.840.114 350.1.13.10 4.2.7.2.686 [id number] [facility] 2020-06-03 00:00:00 2020-06-03 00:00:00 Letter (Out) Meka Bradley [facility] 1.2.840.114 350.1.13.10 4.2.7.2.686 [id number] [facility] 2020-06-03 00:00:00 2020-06-03 00:00:00 [address]aitanya Orr [facility] 1.2.840.114 350.1.13.10 4.2.7.2.686 [id number] [facility] 2020-05-31 11:20:49 2020-05-31 11:40:49 Urgent Care Provider, [facility] Toya Gunter [facility] 1.2.840.114 350.1.13.10 4.2.7.2.686 [id number] [facility] 2020-05-31 11:20:00 2020-05-31 11:20:00 Outpatient R TOYA GUNTER [facility] [id number] [facility] Results Test Description Test Time Test Comments Results Result Co mments Source [facility]
[2025-05-13] MEDS ORDERED: DIPHENHYDRAMINE 50 MG/ML VIAL ONE (16:22)
[2025-05-13] MEDS ORDERED: NA CHLORIDE 0.9% 1,000 ML ONE (16:22)
[2025-05-13] MEDS ORDERED: MORPHINE 4 MG/ML SYR ONE (16:22)
[2025-05-13] MEDS ORDERED: METOCLOPRAMIDE 10 MG/2mL INJ ONE (16:22)
[2025-05-13 16:27] LABS: Absolute Lymphocytes (CBC) 1.5 K/uL (0.7-4.9); Hematocrit 37.0 % (36.0-45.0); Hemoglobin 13.1 g/dL (12.0-15.0); MCH 31.4 pg (27.0-35.0); MCHC 35.5 g/dL (32.0-36.0); MCV 88.6 fL (80-100); MPV 8.9 fL (7.6-11.3); Nucleated RBC Absolute Count 0.0 (0-0); Nucleated Red Blood Cells % 0.1 % (0-0); RBC Red Blood Cell Count 4.17 M/uL (3.86-4.86); White Blood Count 5.40 thou/uL (4.3-10.9)
[2025-05-13 16:35] LABS: PT Prothrombin Time 11.3 SECONDS (10-13.0); Protime INR 1.0
[2025-05-13 16:59] LABS: ALT/SGPT 33 U/L (13-56); AST/SGOT 24 U/L (15-37); Albumin 3.6 g/dL (3.4-5.0); Albumin/Globulin Ratio 1.1 (1.1-1.8); Alkaline Phosphatase 70 U/L (45-117); Anion Gap 7.7 mEq/L (5.0-15.0); BUN Blood Urea Nitrogen 17 mg/dL (7-18); Globulin 3.2 g/dL (2.3-3.5); Glucose Level 131 mg/dL (74-106); Magnesium 2.3 mg/dL (1.6-2.4); Potassium 3.7 mEq/L (3.5-5.1); Troponin High Sensitivity 4.8 pg/mL (<58.9)
[2025-05-13 17:26] LABS: Bilirubin Indirect, Calculated 0.1 mg/dL (0.2-0.8)
[2025-05-13 17:27] LABS: Sqamous Epithelial <5 /HPF (None Seen); Urine Crystals Unidentified Few /HPF (None Seen); Urine Culture Reflex Order NOT NEEDED; Urine Microscopic Reflex YN ORDER UMIC
--- NOTE | 2025-05-13 18:40 | RAD REPORT ---
EXAMINATION: CT HEAD WITHOUT CONTRAST CT CERVICAL SPINE WITHOUT CONTRAST CLINICAL INDICATION: Head and neck pain TECHNIQUE: Axial CT images from the skull base to the vertex without intravenous contrast. Axial CT i mages through the cervical spine were obtained without intravenous contrast. Sagittal and coronal reformatted images were created from the data set. Coronal and sagittal reformatted images were creat ed from the data set. One or more of the following dose reduction techniques were used: Automated exposure control, adjustment of the mA and/or kV according to patient size, and/or iterative reconstr uction. Unless otherwise specified, incidental findings do not require dedicated imaging follow-up. [id number]. Comparison: February 2025 MRI brain FINDINGS: An intracranial bleed is not seen. Ventricles are normal in caliber. No significant hypodensity within the brain No extra-axial fluid collection. No fluid within the sinuses/mastoids No fracture or dislocation is seen involving the cervical spine. No high grade cervical central/foraminal stenosis IMPRESSION: No acute intracranial abnormality noted A cervical fracture is not seen. No high grade cervical central/foraminal stenosis If the patient continues to have symptoms to suggest acute CERTIFIED REGISTERED NURSE PRACTITIONER/spinal pathology then MRI would be rec ommended
--- NOTE | 2025-05-13 18:57 | RAD REPORT ---
EXAMINATION: CTA HEAD CLINICAL INDICATION: Headache and neck pain TECHNIQUE: Axial CT images were obtained through the head after 100 cc Isovue-370 intravenous contras t utilizing angiographic protocol with 3D post-processing (maximum intensity projection images, volume rendered images and/or shaded surface rendered images). One or more of the following dose red uction techniques were used: Automated exposure control, adjustment of the mA and/or kV according to patient size, and/or iterative reconstruction. Unless otherwise specified, incidental findings do not require dedicated imaging follow-up. COMPARISON: None FINDINGS: Distal internal carotid, basilar, anterior cerebral, middle cerebral and posterior cerebral arteries do not demonstrate a significant stenosis An aneurysm not noted. No large vessel occlusion IMPRESSION: No acute vascular abnormality displayed
--- NOTE | 2025-05-13 18:57 | RAD REPORT ---
EXAMINATION: Neck Angio CLINICAL INDICATION: Neck pain and headache TECHNIQUE: Axial CT images were obtained from the aortic arch to the skull base after intravenous adm inistration of 100 cc Isovue-370 utilizing angiographic protocol. Multiplanar reformats, as well as 3D post-processing (maximum intensity projection images, volume rendered images and/or shaded surface rendered images) were generated and reviewed. One or more of the following dose reduction techniques were used: Automated exposure control, adjustment of the mA and/or kV according to patient size, and/or iterative reconstruction. Unless otherwise specified, incidental findings do not require dedicated imaging follow-up. COMPARISON: No prior exam. FINDINGS: The visualized aortic arch and great vessels do not demonstrate a significant abnormality Common carotid, common and internal carotid and external carotid arteries unremarkable Vertebral arteries unremarkable No significant stenosis noted. A dissection is not seen. Methods for NASCET criteria: Mild stenosis, 0% to 49%; Moderate stenosis 50% to 69%; Severe stenosis, 70% to 99% IMPRESSION: No acute vascular abnormality displayed
[2025-05-13] MEDS ORDERED: LORazepam 2 MG/ML VIAL ONE (21:58)
--- NOTE | 2025-05-13 23:42 | EDPHYS ---
Physician Documentation [facility] Name: Rafael Bacon Age: 69 yrs Sex: Female : 1955 Arrival Date: 05/13/2025 Time: 15:55 Bed 20 Private MD: ED Physician Lavon Mcadams HPI: 05/13 16:05 This 69 yrs old Female presents to ER via Unassigned with complaints of Headache and cp Neck Pain. 16:05 The patient complains of pain to the left occipital area, left base of the skull, right cp occipital area and right base of the skull. The patient describes the headache as aching, waxing and waning. Onset: The symptoms/episode began/occurred 2 day(s) ago. Severity of symptoms: in the emergency department the pain a " 10" out of "10". 16:05 Patient reports having lumbar puncture procedure by DR Jain this past Thursday for cp diagnostic purposes. Headache started the next day on and improves when lying flat. Historical: - Allergies: 16:05 No Known Allergies; me1 - PMHx: 16:05 High Cholesterol; Hypertension; increased eye pressure (Unknown); me1 - PSHx: 16:05 endometriosis; me1 - Immunization history:: Adult Immunizations up to date. - Infectious Disease History:: Denies. - Social history:: Smoking status: Patient denies any tobacco usage or history of. ROS: 16:10 Constitutional: Negative for body aches, chills, fever, poor PO intake, cp 16:10 Neck: Positive for pain with movement, pain at rest, cp 16:10 Neuro: Positive for headache, of the base of the skull, 16:10 Eyes: Negative for injury, pain, redness, and discharge, cp 16:10 ENT: Negative for drainage from ear(s), ear pain, sore throat, difficulty swallowing, difficulty handling secretions, 16:10 Cardiovascular: Negative for chest pain, edema, palpitations, 16:10 Respiratory: Negative for cough, shortness of breath, wheezing, 16:10 Abdomen/GI: Negative for abdominal pain, vomiting, diarrhea, constipation, 16:10 All other systems are negative, cp Exam: 16:15 Constitutional: The patient appears in no acute distress, alert, awake, cp non-diaphoretic, non-toxic, well developed, well nourished, uncomfortable, 16:15 Head/Face: Normocephalic, atraumatic. cp 16:15 Eyes: Pupils: equal, round, and reactive to light and accomodation, Conjunctiva: normal, no exudate, no injection, Sclera: no appreciated abnormality, Lids and lashes: appear normal, bilaterally, 16:15 ENT: External ear(s): are unremarkable, Nose: is normal, Mouth: is normal, Posterior pharynx: Airway: no evidence of obstruction, patent, 16:15 Neck: External neck: tenderness, that is severe, of the occiput, left mid cervical area and right mid cervical area, 16:15 Chest/axilla: Inspection: normal, 16:15 Cardiovascular: Rate: normal, Rhythm: regular, Edema: is not appreciated, JVD: is not appreciated, 16:15 Respiratory: the patient does not display signs of respiratory distress, Respirations: normal, no use of accessory muscles, no retractions, labored breathing, is not present, Breath sounds: are clear throughout, no decreased breath sounds, no stridor, no wheezing, 16:15 Abdomen/GI: Inspection: abdomen appears normal, Palpation: abdomen is soft and non-tender, in all quadrants, 16:15 Back: vertebral tenderness, is not appreciated, 16:15 Neuro: Orientation: to person, place \\T\\ time. Mentation: is normal, Cerebellar function: is grossly normal, Motor: moves all fours, strength is normal, Sensation: is normal, 16:28 ECG was reviewed by the Attending Physician. cp Vital Signs: 16:04 BP 166 / 85; Pulse 89; Resp 20; Temp 98.4; Pulse Ox 100% ; Weight 58.06 kg; Height 5 me1 ft. 0 in. ; Pain 10/10; 17:24 BP 156 / 65; Pulse 84; Resp 18; Pulse Ox 98% ; Pain 0/10; rg5 18:12 BP 152 / 65; Pulse 88; Resp 18; Pulse Ox 100% ; Pain 0/10; rg5 19:35 BP 148 / 64; Pulse 67; Resp 18; Pulse Ox 100% ; rg5 20:35 BP 159 / 75; Pulse 66; Resp 18; Pulse Ox 100% ; rg5 21:30 BP 154 / 81; Pulse 71; Resp 18; Pulse Ox 100% ; rg5 22:32 BP 144 / 65; Pulse 65; Resp 18; Pulse Ox 100% ; rg5 23:30 BP 141 / 67; Pulse 78; Resp 17 S; Pulse Ox 100% on R/A; rg5 16:04 Body Mass Index 25.00 (58.06 kg, 152.4 cm) me1 16:04 Pain Scale: Adult me1 17:24 Pain Scale: Adult rg5 18:12 Pain Scale: Adult rg5 MDM: 15:58 Medical Screening Exam initiated cp 17:00 Differential diagnosis: intracerebral hemorrhage, meningitis, meningoencephalitis, cp migraine, subarachnoid bleed, subdural hematoma, tension headache. 19:00 ED course: consult for on-call anesthesia, DR Cordero. cp 19:05 Data reviewed: vital signs, nurses notes, lab test result(s), EKG, radiologic studies, cp CT scan, and as a result, I will consult anesthesia for evaluation for a blood patch. psychiatric secretary asked to reach out and consult on-call anesthesiologist. 20:30 ED course: attempt to call DR Cordero but unable to leave message. Text msg sent. cp 21:00 ED course: consult with DR Cordero for possible blood patch who will see patient in ED cp after discussion. 23:41 Counseling: I had a detailed discussion with the patient and/or guardian regarding the cp historical points, exam findings, and any diagnostic results supporting the discharge/admit diagnosis, lab results, radiology results, to return to the emergency department if symptoms worsen or persist or if there are any questions or concerns that arise at home. 23:41 Care significantly affected by the following chronic conditions: Hypertension. Response cp to treatment: the patient's symptoms have markedly improved after treatment, and as a result, I will discharge patient. 05/13 16:08 Order name: Basic Metabolic Panel; Complete Time: 17:30 cp 05/13 17:30 Interpretation: Normal except: CL 109; GLUC 131; GFR 77. cp 05/13 16:08 Order name: CBC with Diff; Complete Time: 16:34 cp 05/13 17:24 Interpretation: Reviewed. cp 05/13 16:08 Order name: LFT's; Complete Time: 17:30 cp 05/13 16:08 Order name: Magnesium; Complete Time: 17:30 cp 05/13 16:08 Order name: PT-INR; Complete Time: 17:24 cp 05/13 16:08 Order name: Troponin HS; Complete Time: 17:30 cp 05/13 16:09 Order name: UA Rfx Richard Cult if indicated; Complete Time: 17:30 cp 05/13 19:00 Interpretation: Normal except: Urine SG > 1.030; UGLUC TRACE; UPROT TRACE. cp 05/13 16:08 Order name: CT Head C Spine; Complete Time: 18:59 cp 05/13 16:08 Order name: CT Head Angio; Complete Time: 18:59 cp 05/13 16:08 Order name: CT Neck Angio; Complete Time: 18:59 cp 05/13 16:08 Order name: EKG; Complete Time: 16:08 cp 05/13 16:08 Order name: Cardiac monitoring; Complete Time: 16:20 cp 05/13 16:08 Order name: EKG - Nurse/Tech; Complete Time: 16:25 cp 05/13 16:08 Order name: IV Saline Lock; Complete Time: 16:20 cp 05/13 16:08 Order name: Labs collected and sent; Complete Time: 16:20 cp 05/13 16:08 Order name: O2 Per Protocol; Complete Time: 16:20 cp 05/13 16:08 Order name: O2 Sat Monitoring; Complete Time: 16:20 cp 05/13 21:03 Order name: NPO; Complete Time: 21:14 cp EC:28 Rate is 76 beats/min. Rhythm is regular. HI interval is normal. QRS interval is normal. cp T waves are Inverted in lead aVR. Interpreted by me. Reviewed by me. Administered Medications: No medications were administered Disposition: 05/14 07:17 Co-signature as Attending Physician, Lavon Mcadams MD I agree with the assessment sp4 and plan of care. I reviewed the patient's care provided by the Advanced Practice Provider and agree with the diagnosis and treatment plan. Disposition Summary: 05/13/25 23:42 Discharge Ordered Notes: Location: Home cp Problem: new cp Symptoms: have improved cp Condition: Stable cp Diagnosis - Other headache syndrome - post lumbar puncture cp Followup: cp - With: Private Physician - When: 2 - 3 days - Reason: Recheck today's complaints Discharge Instructions: - Discharge Summary Sheet cp - Epidural Blood Patch for Spinal Headache cp - Spinal Headache cp Forms: - Medication Reconciliation Form cp - Antibiotic Education cp - Prescription Opioid Use cp - Patient Portal Instructions cp - Leadership Thank You Letter cp Prescriptions: - Zofran 4 mg Oral Tablet - take 1 tablet ORAL route every 12 hours As needed; 20 tablet; Refills: 0, cp Product Selection Permitted - Tylenol-Codeine #3 300mg-30mg Oral tablet - take 1 tablet ORAL route every 4 hours As needed; 16 tablet; Refills: 0, cp Product Selection Permitted Signatures: Dispatcher [employer] EDMS Michael Lind, REENA PALavon Sorto cp, MD MD sp4 Angelika Andino RN RN me1
--- NOTE | 2025-05-13 23:42 | ER ---
Nurse's Notes [facility] Name: Rafael Bacon Age: 69 yrs Sex: Female : 1955 Arrival Date: 05/13/2025 Time: 15:55 Bed 20 Private MD: Diagnosis: Other headache syndrome-post lumbar puncture Presentation: 05/13 16:04 Chief complaint: Patient states: had a lumbar puncture on Thursday. started me1 to develop neck pain that is 05/19. Denies RICHARDSON. Coronavirus screen: Vaccine status: Patient reports receiving the 2nd dose of the covid vaccine. Ebola Screen: No symptoms or risks identified at this time. Initial Sepsis Screen: Does the patient meet any 2 criteria? No. Patient's initial sepsis screen is negative. Does the patient have a suspected source of infection? No. Patient's initial sepsis screen is negative. Risk Assessment: Do you want to hurt yourself or someone else? Patient reports no desire to harm self or others. Onset of symptoms was May 10, 2025. 16:04 [place] [facility] [place] Acuity: DEANA 3 me1 Historical: - Allergies: 16:05 No Known Allergies; me1 - PMHx: 16:05 High Cholesterol; Hypertension; increased eye pressure (Unknown); me1 - PSHx: 16:05 endometriosis; me1 - Immunization history:: Adult Immunizations up to date. - Infectious Disease History:: Denies. - Social history:: Smoking status: Patient denies any tobacco usage or history of. Screenin:17 [facility] ED Fall Risk Assessment (Adult) History of falling in the last 3 months, rg5 including since admission No falls in past 3 months (0 pts) Confusion or Disorientation No (0 pts) Intoxicated or Sedated No (0 pts) Impaired Gait No (0 pts) Mobility Assist Device Used No (0 pt) Altered Elimination No (0 pt) Score/Fall Risk Level 0 - 2 = Low Risk Oriented to surroundings, Maintained a safe environment. Abuse screen: Denies threats or abuse. Nutritional screening: No deficits noted. Tuberculosis screening: No symptoms or risk factors identified. Assessment: 16:17 Pain: Complains of pain in base of the skull Quality of pain is described as aching. rg5 16:18 General: Appears in no apparent distress. Behavior is calm, cooperative, appropriate rg5 for age. Neuro: Oriented to person, place, time, situation. Cardiovascular: Denies chest pain, Patient's skin is warm and dry. Respiratory: Airway is patent Respiratory effort is even, unlabored. GI: Abdomen is round non-distended. : No signs and/or symptoms were reported regarding the genitourinary system. EENT: No signs and/or symptoms were reported regarding the EENT system. Derm: Skin is intact, Skin is dry, Skin is normal, Skin temperature is warm. Musculoskeletal: Circulation, motion, and sensation intact. Range of motion: intact in all extremities. 17:24 Reassessment: No changes from previously documented assessment. Patient and/or family rg5 updated on plan of care and expected duration. Pain level reassessed. Patient is alert, oriented x 3, equal unlabored respirations, skin warm/dry/pink. 18:13 Reassessment: No changes from previously documented assessment. Patient and/or family rg5 updated on plan of care and expected duration. Pain level reassessed. Patient is alert, oriented x 3, equal unlabored respirations, skin warm/dry/pink. 19:30 Reassessment: Patient and/or family updated on plan of care and expected duration. Pain rg5 level reassessed. Patient is alert, oriented x 3, equal unlabored respirations, skin warm/dry/pink. 20:39 Reassessment: No changes from previously documented assessment. Patient and/or family rg5 updated on plan of care and expected duration. Pain level reassessed. Patient is alert, oriented x 3, equal unlabored respirations, skin warm/dry/pink. 22:30 Reassessment: Patient and/or family updated on plan of care and expected duration. Pain rg5 level reassessed. Patient is alert, oriented x 3, equal unlabored respirations, skin warm/dry/pink. Patient states feeling better. Patient states symptoms have improved. 23:00 Reassessment: Patient and/or family updated on plan of care and expected duration. Pain rg5 level reassessed. Patient is alert, oriented x 3, equal unlabored respirations, skin warm/dry/pink. Patient states feeling better. Patient states symptoms have improved. Vital Signs: 16:04 BP 166 / 85; Pulse 89; Resp 20; Temp 98.4; Pulse Ox 100% ; Weight 58.06 kg; Height 5 me1 ft. 0 in. ; Pain 10/10; 17:24 BP 156 / 65; Pulse 84; Resp 18; Pulse Ox 98% ; Pain 0/10; rg5 18:12 BP 152 / 65; Pulse 88; Resp 18; Pulse Ox 100% ; Pain 0/10; rg5 19:35 BP 148 / 64; Pulse 67; Resp 18; Pulse Ox 100% ; rg5 20:35 BP 159 / 75; Pulse 66; Resp 18; Pulse Ox 100% ; rg5 21:30 BP 154 / 81; Pulse 71; Resp 18; Pulse Ox 100% ; rg5 22:32 BP 144 / 65; Pulse 65; Resp 18; Pulse Ox 100% ; rg5 23:30 BP 141 / 67; Pulse 78; Resp 17 S; Pulse Ox 100% on R/A; rg5 16:04 Body Mass Index 25.00 (58.06 kg, 152.4 cm) me1 16:04 Pain Scale: Adult me1 17:24 Pain Scale: Adult rg5 18:12 Pain Scale: Adult rg5 ED Course: 15:56 Patient arrived in ED. cj3 15:57 Michael Lind PA-C is PHCP. cp 15:57 Georgette Christiansen MD is Attending Physician. cp 15:57 Ayad Shipley, DEMAR is Primary Nurse. rg5 16:05 Triage completed. me1 16:05 Arm band placed on Patient placed in an exam room. me1 16:17 Patient has correct armband on for positive identification. Bed in low position. Call rg5 light in reach. Side rails up X 1. Door closed. Noise minimized. Warm blanket given. 16:17 Inserted saline lock: 20 gauge in right antecubital area, using aseptic technique. rg5 Blood collected. Flushed with 10 mL NS. 16:25 EKG done, by ED staff, reviewed by Michael Lind PA-C. ts3 18:04 CT Head C Spine In Process Unspecified. EDMS 18:04 CT Head Angio In Process Unspecified. EDMS 18:05 CT Neck Angio In Process Unspecified. EDMS 22:00 Assisted provider with: EPIDURAL BLOOD PATCH. STERILE PROCEDURE MAINTAINED AT ALL ha1 TIMES. PATIENT TOLERATED WELL. PROCEDURE PERFORMED BY DR. PEÑA. 23:34 Lavon Mcadams MD is Attending Physician. cp 05/14 00:05 IV discontinued, intact, bleeding controlled, No redness/swelling at site. Pressure rg5 dressing applied. Administered Medications: No medications were administered Medication: 05/13 16:17 VIS not applicable for this client. rg5 Outcome: 23:42 Discharge ordered by . cp 23:44 Discharged to home ambulatory, rg5 23:44 Condition: stable 23:44 Discharge instructions given to patient, family, Instructed on discharge instructions, follow up and referral plans. medication usage, Demonstrated understanding of instructions, follow-up care, medications, Prescriptions given X 1, 05/14 00:05 Patient left the ED. rg5 Signatures: Dispatcher [employer] EDMS Michael Lind PA-C PA-C cp Ayala, Heidy, RN RN ha1 Angelika Andino RN RN ri1 Ayad Shipley RN RN rg5 Lizzie Arnett 3 Ginny Cain ts3 Corrections: (The following items were deleted from the chart) 05/13 22:25 16:17 No provider procedures requiring assistance completed. rg5 ha1 22:31 22:00 Assisted provider with: EPIDURAL BLOOD PATCH. STERILE PROCEDURE MAINTAINED AT ALL ha1 TIMES. PATIENT TOLERATED WELL. ha1 22:35 22:15 BP 154 / 81; Pulse 71bpm; Resp 18bpm; Pulse Ox 100%; rg5 rg5 05/14 00:07 00:06 BP 141 / 67; Pulse 78bpm; Resp 17bpm; Spontaneous; Pulse Ox 100% RA; rg5 rg5
[2025-05-14 00:26] VITALS: TEMP 98.4
[2025-05-14 00:29] VITALS: O2SAT 100
[2025-05-14 00:36] VITALS: BP 144/65
== END 2025-05-14 00:05 | disposition home or self-care (01) ==
LOC: ER 15:55
DX: G44.89 Other headache syndrome (principal); G97.1 Other reaction to spinal and lumbar puncture
CPT/HCPCS: 93005; 85025; 81001; 80048; 36415; 83735; 85610; 80076; 84484; 70450; 72125; 70496; 70498; 99284; Q9967; J7030; J1200; J2765